=== PATIENT | female | born 1970 | race Caucasian/White ===

== ENCOUNTER 2017-09-23 05:07 | Emergency (ER) | payer BC ==
[2017-09-23 05:47] LABS: Bilirubin Negative (Negative); Blood, Urine Moderate (Negative); Clarity CLOUDY (Clear); Glucose, Urine (Dipstick) Negative (Negative); Leukocyte Negative (Negative); Nitrite Negative (Negative); Protein, Urine (Dipstick) Negative (Neg-Trace); Specific Gravity, Urine 1.013 (1.002-1.036); Urobilinogen 0.2 mg/dL (0.2-1.0); pH, Urine 5.5 (5.0-9.0)
[2017-09-23 06:15] LABS: Hyaline Casts/LPF NONE SEEN LPF (0-3 Hyaline)
[2017-09-23 06:16] LABS: Bacteria/HPF 1+ HPF (None Seen); WBC/HPF 0-3 HPF (0-3)
[2017-09-23] MEDS ORDERED: Morphine 10 MG/ML VIAL ONE (06:28)
[2017-09-23] MEDS ORDERED: Morphine 2 MG/ML SYRINGE ONE (06:28)
[2017-09-23] MEDS ORDERED: Ondansetron HCl/PF 4 MG/2 ML Vial ONE (06:28)
[2017-09-23] MEDS ORDERED: Ketorolac Tromethamine 30 MG/ML VIAL ONE (06:49)
[2017-09-23 07:04] LABS: #Basophils 0.1 thou/uL (0.0-0.2); #Eosinphils 0.1 thou/uL (0.0-0.7); #Lymphocytes 2.6 thou/uL (1.20-3.40); #Monocytes 0.8 thou/uL (0.11-0.59); #Neutrophils 7.7 thou/uL (1.40-6.50); %Basophils 1.1 % (0.0-1.0); %Lymphocytes 23.4 % (21.0-51.0); %Monocytes 6.8 % (0.0-10.0); %Neutrophils 67.8 % (42.0-75.0); Hemoglobin 12.3 g/dL (12.0-16.0); Mean Corpuscular HGB CONC 33.5 g/dL (32.0-36.0); Mean Corpuscular Hemoglobin 32.1 pg (27.0-31.0); Mean Platelet Volume 8.2 fL (7.4-10.4); Platelet Count 339 thou/uL (130-400); RBC Distribution Width 12.2 % (11.5-14.5); Red Blood Cell (RBC) Count 3.82 mill/uL (4.20-5.40); White Blood Cell (WBC) Count 11.3 thou/uL (4.8-10.8)
[2017-09-23] MEDS ORDERED: Fentanyl 100 MCG/2 ML VIAL ONE ×2 (08:27→10:45)
--- NOTE | 2017-09-23 08:30 | CT ---
PRELIMINARY REPORT/[facility]/EMERGENCY AFTER HOURS PROCEDURE: EXAM: CT Abdomen and Pelvis Without Intravenous Contrast CLINICAL HISTORY: 47 years old, female; Pain; Abdominal pain; Flank; Left; Patient HX: 47 yo f presents to ed C/O sudde n onset r flank pain that started yesterday. Denies radiation of pain. Reports hematuria. Denies dysu fabricio. Pt states she had similar pain on l side a couple years ago and states she had a large kidney st one then which had to be removed. Pt has h/o pancreatitis for which she sees gi, states this pain ayala s not feel the same. TECHNIQUE: Axial computed tomography images of the abdomen and pelvis without intravenous contrast. All CT scans at this facility use one or more dose reduction techniques, viz.: automated exposure control; ma/kV adjustment per patient size (including targeted exams where dose is matched to indication; i.e. head) ; or iterative reconstruction technique. Coronal reformatted images were created and reviewed. COMPARISON: No relevant prior studies available. FINDINGS: Lower thorax: No acute findings. ABDOMEN: Liver: Hepatomegaly and diffuse fatty infiltration Gallbladder and bile ducts: Distended No calcified stones. Common bile that dilatation measuring up t o 11 mm Pancreas: Chronic calcific pancreatitis. No ductal dilation. Spleen: Unremarkable. No splenomegaly. Adrenals: Unremarkable. No mass. Kidneys and ureters: Moderate right hydroureteronephrosis. Left nephrolithiasis measuring up to 3 mm and faint bilateral nephrocalcinosis Stomach and bowel: Large stool in the colon. No obstruction. No mucosal thickening. Appendix: No findings to suggest acute appendicitis. PELVIS: Bladder: Right UVJ calculus measuring 2 mm Reproductive: Unremarkable as visualized. ABDOMEN and PELVIS: Intraperitoneal space: Unremarkable. No free air. No significant fluid collection. Bones/joints: No acute fracture. No dislocation. Soft tissues: Unremarkable. Vasculature: Unremarkable. No abdominal aortic aneurysm. Lymph nodes: Unremarkable. No enlarged lymph nodes. IMPRESSION: Moderate right hydroureteronephrosis secondary to a 2 mm right UVJ calculus Left renal calculi and faint bilateral nephrocalcinosis Distended gallbladder and dilated common bile duct. No definite calcified stones Chronic calcific pancreatitis. No definite CT evidence for acute pancreatitis Question constipation Thank you for allowing us to participate in the care of your patient. Dictated and Authenticated by: Stewart Mayfield MD 09/23/2017 7:14 AM Central Time ([place] & [place]) CT ABDOMEN AND PELVIS WITHOUT CONTRAST: FINAL REPORT I agree with the preliminary report given by Dr. Stewart Mayfield of [facility]. POS: [facility]
[2017-09-23 09:47] LABS: Albumin 3.6 g/dL (3.5-5.0)
[2017-09-23 09:48] LABS: Chloride 111 mmol/L (98-107); Potassium 3.6 mmol/L (3.5-5.1); Sodium 136 mmol/L (136-145)
[2017-09-23 09:49] LABS: Calcium 8.6 mg/dL (7.8-10.44)
[2017-09-23 09:50] LABS: Globulin 2.8 g/dL (2.4-3.5); Glucose 85 mg/dL (70-105); Protein, Total 6.4 g/dL (6.0-8.3)
[2017-09-23 09:51] LABS: Anion Gap 11 mmol/L (10-20); Carbon Dioxide 18 mmol/L (22-29)
[2017-09-23 09:52] LABS: Bilirubin, Total 0.4 mg/dL (0.2-1.2)
[2017-09-23 09:53] LABS: Alkaline Phosphatase 63 U/L (40-150); Calc. Creatinine Clearance 0 mL/min (70-130); Estimated GFR-MDRD Greater than 90
[2017-09-23 09:54] LABS: BUN (Urea Nitrogen) 6 mg/dL (7.0-18.7)
[2017-09-23 09:55] LABS: AST (SGOT) 17 U/L (5-34)
[2017-09-23 09:59] LABS: ALT (SGPT) 15 U/L (8-55); Lipase Less than 4 U/L (8-78)
== END 2017-09-23 11:12 | disposition home or self-care (01) ==
LOC: ERS 05:07
DX: N13.2 Hydronephrosis with renal and ureteral calculous obstruction (principal)
CPT/HCPCS: 36415; 74176; 80053; 81003; 81015; 83690; 85025; 87086; 96361; 96374; 96375; 96376; J1885; J2270; J2405; J3010